=== PATIENT | male | born 1995 | race Caucasian/White ===

== ENCOUNTER 2022-07-16 08:51 | Emergency (ER) | payer OTHER ==
[~2022-07-16] VITALS: Ht 182.9 cm; Wt 76.7 kg
[2022-07-16] MEDS ORDERED: NAPR-849 PO (09:02)
[2022-07-16] MEDS ORDERED: MECL50TA PO (11:54)
[2022-07-16] MEDS ORDERED: KETO10TAB PO (11:54)
[2022-07-16 12:18] VITALS: BP 110/64
== END 2022-07-16 12:28 | disposition home or self-care (01) ==
LOC: M ED 08:51
DX: F07.81 Postconcussional syndrome (principal); Z79.899 Other long term (current) drug therapy

== ENCOUNTER 2023-12-21 08:42 | Day surgery (SDC) | payer OTHER ==
[~2023-12-21] VITALS: Ht 182.9 cm; Wt 74.2 kg
[~2023-12-21 08:42] MED LIST: KETO10TAB PO; MECL50TA PO; NAPR-849 PO
[2023-12-21] MEDS ORDERED: LR 1,000 ML IV SCH (09:45)
[2023-12-21] MEDS: EPINEPHrine INJ 1 MG/ML 1ML AMP PN ONE (10:10)
[2023-12-21] MEDS: LIDOCAINE 1% SDV 5ML VIAL PN ONE (10:10)
[2023-12-21] MEDS: ROPIvacaine 0.5% 30ML VIAL PN ONE (10:10)
[2023-12-21] MEDS: dexAMETHasone 10MG/1ML VIAL PRES.FREE PN ONE (10:10)
[2023-12-21] MEDS ORDERED: SUGAMMADEX SODIUM 500 MG/5 ML VIAL (BRIDION) As Ordered ONE (10:33)
[2023-12-21] MEDS ORDERED: KETOROLAC 60MG 2ML VIAL As Ordered ONE (10:33)
[2023-12-21] MEDS ORDERED: fentaNYL 100 MCG/2 ML INJECTION As Ordered ONE (10:33)
[2023-12-21] MEDS ORDERED: ONDANSETRON 4MG 2ML VIAL As Ordered ONE (10:33)
[2023-12-21] MEDS ORDERED: ROCURONIUM BROMIDE 50MG/5ML VIAL As Ordered ONE (10:33)
[2023-12-21] MEDS ORDERED: propofoL 200 MG/20 ML VIAL As Ordered ONE (10:33)
[2023-12-21] MEDS ORDERED: LIDOCAINE 2% 100MG/5ML SDV (FOR ANES.) As Ordered ONE (10:33)
[2023-12-21] MEDS ORDERED: fentaNYL 100 MCG/2 ML INJECTION IV PRN ×2 (10:40→16:10)
[2023-12-21] MEDS ORDERED: ONDANSETRON 4MG 2ML VIAL IV PRN (10:40)
[2023-12-21] MEDS ORDERED: oxyCODONE 5MG TAB PO PRN (10:40)
[2023-12-21] MEDS ORDERED: METOCLOPRAMIDE INJ 10MG/2ML VIAL IV PRN ×2 (10:40→16:10)
[2023-12-21] MEDS ORDERED: HYDROMORPHONE HCL 0.5 MG/ 0.5 ML SYRINGE IV PRN ×2 (10:40→16:10)
[2023-12-21] MEDS: MIDAZOLAM INJ 2MG/2ML VIAL IV PRN (11:00)
[2023-12-21] MEDS: fentaNYL 100 MCG/2 ML INJECTION IV PRN (11:00)
[2023-12-21] MEDS: ceFAZolin SOD 2 GM in IV 1 EA IV ONE (11:55)
[2023-12-21] MEDS ORDERED: ePHEDrine SULFATE 25 MG/5 ML(5MG/ML) SYRINGE As Ordered ONE (12:01)
[2023-12-21] MEDS ORDERED: PHENYLephrine 500MCG 5ML (100MCG/ML) SYRINGE As Ordered ONE (12:01)
[2023-12-21] MEDS: TRANEXAMIC ACID 100 MG/ML 10ML VIAL IV ONE (12:04)
[2023-12-21] MEDS ORDERED: ACETAMINOPHEN 1000MG 100ML IV BAG As Ordered ONE (13:22)
[2023-12-21] MEDS ORDERED: HYDROmorphone HCL 2MG/ML 1ML VIAL As Ordered ONE (14:50)
[2023-12-21] MEDS: TRANEXAMIC ACID 100 MG/ML 10ML VIAL As Ordered ONE (15:30)
[2023-12-21] MEDS: EPINEPHrine 1MG/ML INJ 30ML MD-VIAL As Ordered ONE (15:53)
[2023-12-21] MEDS: oxyCODONE 5MG TAB PO PRN (16:39)
[2023-12-21] MEDS: ONDANSETRON 4MG 2ML VIAL IV PRN (16:39)
[2023-12-21 17:40] VITALS: BP 134/66; TEMP 98.1; O2SAT 97
== END 2023-12-21 17:48 | disposition home or self-care (01) ==
LOC: M SDC 08:42
PROVIDERS: ATTEND Orthopaedic Surgery
DX: S83.512A Sprain of anterior cruciate ligament of left knee, initial encounter (principal); S83.242A Other tear of medial meniscus, current injury, left knee, initial encounter; X50.1XXA Overexertion from prolonged static or awkward postures, initial encounter; Y93.39 Activity, other involving climbing, rappelling and jumping off; Y92.9 Unspecified place or not applicable
CPT/HCPCS: 29882; 29888; 73560; C1713; C9290; J0131; J0171; J0665; J0690; J1100; J1170; J1885; J2250; J2371; J2405; J2795; J3010

== ENCOUNTER → 2024-03-21 | Outpatient (CLI) | payer OTHER | LOC: M PLAIMG 07:51 | PROVIDERS: ATTEND Orthopaedic Surgery | DX: Z47.89 Encounter for other orthopedic aftercare (principal); M25.462 Effusion, left knee ==

== ENCOUNTER 2024-06-22 15:38 | Emergency (ER) | payer OTHER ==
[~2024-06-22] VITALS: Ht 182.9 cm; Wt 69.4 kg
[2024-06-22 15:55] VITALS: BP 133/79; TEMP 97.9; O2SAT 97
== END 2024-06-22 20:23 | disposition left against medical advice (07) ==
LOC: M ED 15:38
DX: Z53.21 Procedure and treatment not carried out due to patient leaving prior to being seen by health care provider (principal)